=== PATIENT | female | born 2000 | race Caucasian/White ===

== ENCOUNTER → 2021-01-04 14:08 | Outpatient (BNVA) | payer OTHER, SELFPAY | PROVIDERS: PCP Registered Nurse; Visit Provider Registered Nurse | DX: R05 Cough (principal) | CPT/HCPCS: 87635 ==

== ENCOUNTER → 2023-08-07 11:42 | Outpatient (BNVA) | payer BC, MEDICAID, SELFPAY | PROVIDERS: PCP Registered Nurse; Visit Provider Registered Nurse | DX: R19.7 Diarrhea, unspecified (principal); K29.60 Other gastritis without bleeding | CPT/HCPCS: 80053; 85025 ==

== ENCOUNTER → 2023-08-08 10:53 | Outpatient (BNVA) | payer BC, MEDICAID, SELFPAY | PROVIDERS: PCP Registered Nurse; Visit Provider Registered Nurse | DX: R19.7 Diarrhea, unspecified (principal) | CPT/HCPCS: 87045; 87427; 87449; 87493 ==